=== PATIENT | male | born 1990 | race American Indian/Alaskan Native ===

== ENCOUNTER 2022-01-05 22:55 | Emergency (ER) | payer SELFPAY ==
[2022-01-06] MEDS ORDERED: SODIUM CHLORIDE 0.9% 1000 ML 1,000 ML IV ONE (00:56)
[2022-01-06] MEDS ORDERED: LORazepam 2 MG/ML VIAL IV ONE (00:56)
[2022-01-06] MEDS ORDERED: diphenhydrAMINE 50 MG/ML VIAL IV ONE (00:57)
--- NOTE | 2022-01-06 01:02 | Emergency Department Report ---
ED General Adult HPI - General Chief complaint: Weakness Stated complaint: FALL,SHAKES, PAIN Time Seen by Provider: 01/06/22 00:22 Source: patient, EMS Mode of arrival: Stretcher Limitations: No Limitations - History of Present Illness Initial comments: 30-year-old male who presents with generalized weakness and shakiness that started after a presyncope episode while at home. Patient states he is likely allergic to something that is not known about. He however denies any shortness of breath, chest pain or palpitation. He said he had rice and chicken this afternoon which was prepared by his mom at home. Patient reported having 3 bottles of beer 24 hours ago. He also mentioned that he could be allergic to the alcohol. Patient is observed grinding his teeth which he says usually having with his symptoms. Patient reported that the same thing happened about 4 months ago with no medical attention. Pt also reports some generalized body shakiness. Patient denies any illicit drug use but marijuana in the last 2 months. No other modifying or positive factors reported. - Related Data Allergies Allergy/AdvReac Type Severity Reaction Status Date / Time No Known Allergies Allergy Verified 01/06/22 01:12 ED Review of Systems ROS: Stated complaint: FALL,SHAKES, PAIN Other details as noted in HPI Comment: All other systems reviewed and negative ED Past Medical Hx - Past Medical History Previous Medical History?: No - Surgical History Past Surgical History?: No - Social History Smoking Status: Never Smoker Substance Use Type: None ED Physical Exam - General Limitations: No Limitations ED Course Vital Signs 01/05/22 01/06/22 01/06/22 23:07 00:29 00:30 Temperature 99.4 F Pulse Rate 108 H Respiratory 18 Rate Blood Pressure 148/82 133/87 O2 Sat by Pulse 99 99 99 Oximetry 01/06/22 01/06/22 01/06/22 00:46 01:00 01:13 Temperature 99.0 F Pulse Rate 88 Respiratory Rate Blood Pressure 149/90 135/90 O2 Sat by Pulse 99 99 Oximetry - Reevaluation(s) Reevaluation #1: 01/06/22 01:00 With presyncope--and writing on teeth after--this could be post ictal to a seizure episode--that is undiagnosed in this patient concentrating this is a recurrent episode. We will go ahead and get a CT scan of the brain, routine labs including CBC, CMP, urinalysis and urine drug screen for any abnormal electrolyte or infectious process. In the meantime we will give Ativan and Benadryl to help with symptoms. With no rash or any systemic allergic symptoms this is unlikely an allergic reaction as pointed out by patient. Patient reported feeling much better. 01/06/22 05:28 Routine lab looks very reassuring with no significant abnormality. CT scan of the brain is. Unremarkable as well. Considering generalized shakiness during the episode makes the likelihood of seizure possible. ED Medical Decision Making - Lab Data Result diagrams: 01/06/22 01:11 01/06/22 01:11 Critical care attestation.: If time is entered above; I have spent that time in minutes in the direct care of this critically ill patient, excluding procedure time. ED Disposition Clinical Impression: Pre-syncope, Seizure Disposition: 01 HOME / SELF CARE / HOMELESS Is pt being admited?: No Does the pt Need Aspirin: No Condition: Stable Instructions: Near-Syncope, [id number], Seizure, Adult, [id number] Additional Instructions: Increase your daily fluid to help your hydration Avoid any allergen if known : Follow-up with your primary doctor in the next 3 to 5 days for progress Please do not hesitate to call or return to emergency room if your symptoms worsen Referrals: VANESSA DIEHL MD [Primary Care Provider] - 3-5 Days Time of Disposition: 04:54
[2022-01-06 01:23] LABS: Basophils # (Auto) 0.1 K/mm3 (0.0-0.1); Basophils % (Auto) 0.7 % (0.0-1.8); Eosinophils % (Auto) 0.2 % (0.0-4.3); Hematocrit 41.5 % (35.5-45.6); Hemoglobin 13.8 gm/dl (11.8-15.2); Lymphocytes # (Auto) 1.5 K/mm3 (1.2-5.4); Lymphocytes % (Auto) 16.1 % (13.4-35.0); Mean Corpuscular HGB Conc 33 % (32-34); Mean Corpuscular Volume 92 fl (84-94); Monocytes # (Auto) 0.7 K/mm3 (0.0-0.8); Platelet Count 154 K/mm3 (140-440); Red Blood Count 4.49 M/mm3 (3.65-5.03); Red Cell Distribution Width 14.3 % (13.2-15.2)
[2022-01-06 01:33] LABS: INR 0.9 (0.87-1.13)
[2022-01-06 01:34] LABS: Partial Thromboplastin Time 21.9 Sec. (24.2-36.6)
[2022-01-06 01:51] LABS: Alanine Aminotransferase 81 units/L (7-56); Albumin 4.6 g/dL (3.9-5); BUN/Creatinine Ratio 13; Blood Urea Nitrogen 10 mg/dL (9-20); Calcium 9.2 mg/dL (8.4-10.2); Hemolysis Index 3
--- NOTE | 2022-01-06 01:52 | Cat Scan Report ---
CT HEAD WITHOUT CONTRAST INDICATION / CLINICAL INFORMATION: stroke. TECHNIQUE: CT head was performed without administration of intravenous contrast. All CT scans at this location are performed using CT dose reduction for ALARA by means of automated exposure control. COMPARISON: None available. FINDINGS: CEREBRAL PARENCHYMA: No significant abnormality. No acute territorial infarct. HEMORRHAGE: None. EXTRA-AXIAL SPACES: Normal in size and morphology for the patient's age. VENTRICULAR SYSTEM: Normal in size and morphology for the patient's age. MIDLINE SHIFT / HERNIATION: None. CEREBELLUM / BRAINSTEM: No significant abnormality. ORBITS: No significant abnormality. SOFT TISSUES: No significant abnormality. SKULL: No significant abnormality. PARANASAL SINUSES / MASTOID AIR CELLS: Normal as visualized. ADDITIONAL FINDINGS: None. IMPRESSION: 1. No acute intracranial abnormality. Signer Name: Gagan Londono II, MD Signed: 01/06/2022 1:48 AM Workstation Name: [id number]
[2022-01-06 05:47] VITALS: BP 139/93
[2022-01-06 06:56] LABS: Bilirubin,Urine NEG (Negative); Blood,Urine NEG (Negative); Color,Urine Yellow (Yellow)
[2022-01-06 06:58] LABS: RBC,Urine < 1.0 /HPF (0.0-6.0); WBC,Urine < 1.0 /HPF (0.0-6.0)
[2022-01-06 07:04] LABS: Amphetamine Screen,Urine Negative; Benzodiazepines Screen,Urine Negative; Cannabinoid Screen,Urine Negative; Cocaine Screen,Urine Negative; Methadone Screen,Urine Negative; Opiate Screen,Urine Negative
== END 2022-01-06 05:38 | disposition home or self-care (01) ==
LOC: ED 22:55
DX: R55 Syncope and collapse (principal); R56.9 Unspecified convulsions; R53.1 Weakness
CPT/HCPCS: 36415; 70450; 80053; 80307; 81001; 83880; 84443; 85025; 85610; 85730; 96361; 96374; 96375; 99284; J1200; J2060; J7030